=== PATIENT | male | born 1975 | race Caucasian/White ===

== ENCOUNTER 2017-08-14 00:56 | Emergency (ER) | payer OTHER ==
[2017-08-14 01:57] LABS: Band 16 % (5-11); Hemoglobin 14.2 g/dL (14.0-18.0); Lymphocytes 15 % (21-51); MDiff Complete? YES; Mean Corpuscular HGB CONC 33.8 g/dL (32.0-36.0); Mean Corpuscular Hemoglobin 30.1 pg (27.0-31.0); Mean Platelet Volume 8.2 fL (7.4-10.4); Monocytes 7 % (0-10); Neutrophil 62 % (42-75); PLT Morphology Comment Appears Adequate; Platelet Count 130 thou/uL (130-400); RBC Distribution Width 11.2 % (11.5-14.5); Red Blood Cell (RBC) Count 4.72 mill/uL (4.70-6.10); White Blood Cell (WBC) Count 18.6 thou/uL (4.8-10.8)
[2017-08-14 02:01] LABS: ALT (SGPT) 9 U/L (8-55); AST (SGOT) 14 U/L (5-34); Albumin 4.3 g/dL (3.5-5.0); Alkaline Phosphatase 59 U/L (40-150); Anion Gap 13 mmol/L (10-20); BUN (Urea Nitrogen) 16 mg/dL (8.9-20.6); Bilirubin, Total 1.5 mg/dL (0.2-1.2); Calc. Creatinine Clearance 0 mL/min (70-130); Carbon Dioxide 25 mmol/L (22-29); Chloride 102 mmol/L (98-107); Estimated GFR-MDRD 65; Globulin 3.2 g/dL (2.4-3.5); Glucose 118 mg/dL (70-105); Potassium 4.1 mmol/L (3.5-5.1); Protein, Total 7.5 g/dL (6.0-8.3); Sodium 136 mmol/L (136-145)
[2017-08-14 02:31] LABS: Bilirubin Negative (Negative); Blood, Urine Moderate (Negative); Clarity CLEAR (Clear); Glucose, Urine (Dipstick) Negative (Negative); Leukocyte Negative (Negative); Nitrite Negative (Negative); Protein, Urine (Dipstick) 30 mg/dL (Neg-Trace); Specific Gravity, Urine 1.029 (1.002-1.036); Urobilinogen 0.2 mg/dL (0.2-1.0); pH, Urine 5.5 (5.0-9.0)
[2017-08-14 02:34] LABS: Bacteria/HPF None Seen HPF (None Seen); Hyaline Casts/LPF 0-3 HYALINE CAST LPF (0-3 Hyaline); Pathc Cast-AUWi Flag 0.29 (0-2.49); Squamous Epithelial 0-3 HPF (0-3)
[2017-08-14 02:51] LABS: Oval Fat Bodies/HPF None Seen HPF (None Seen); Renal Epithelial None Seen HPF (0-3); Sperm/HPF None Seen HPF (None Seen); Transitional Epithelial NONE SEEN HPF (0-3); Trichomonas/HPF None Seen HPF (None Seen); Yeast-All Forms None Seen HPF (None Seen)
[2017-08-14] MEDS ORDERED: Ondansetron ODT 4 MG TAB ONE (04:02)
[2017-08-14] MEDS ORDERED: Ketorolac Tromethamine 30 MG/ML VIAL ONE (04:02)
[2017-08-14] MEDS ORDERED: Morphine 10 MG/ML VIAL ONE (04:02)
[2017-08-14] MEDS ORDERED: cefTRIAXone\\ROCEPHIN 2 GM VIAL ONE (06:32)
[2017-08-14] MEDS ORDERED: Sodium Chloride 0.9% 100 ML ONE (06:32)
--- NOTE | 2017-08-14 09:16 | CT ---
PRELIMINARY REPORT/[facility]/EMERGENTY AFTER-HOURS PROCEDURE CT Abdomen and Pelvis Without Intravenous Contrast CLINICAL HISTORY: 42 years old, male; Pain; Abdominal pain; Flank; Right; Patient HX: Er 5; 42 yo m presents to ed with abdominal pain. Pt reports pain on the right side of his abdomen, with associated right flank pain a nd right testicular pain. Pt reports he had a fever of 104 yesterday. Pt reports he hasn't had much o f an appetite, but has eaten some. Pt reports normal bowel movements. Pt reports some blood in his ur ine. TECHNIQUE: Axial computed tomography images of the abdomen and pelvis without intravenous contrast. Coronal ref ormatted images were created and reviewed. COMPARISON: No relevant prior studies available. FINDINGS: Lung bases: No acute findings. ABDOMEN: Liver: Normal. Gallbladder and bile ducts: Unremarkable. Pancreas: Normal. Spleen: Normal. Adrenals: Normal. Kidneys and ureters: Mild bilateral renal papillary region hyperdensity can be seen with dehydration or mild nephrocalcinosis. 2 mm nonobstructive left renal stone. Questionable punctate nonobstructive right renal stone. Otherwise, no defined renal stone. No ureteral stone identified. No hydroureteronephrosis. Stomach and bowel: Unremarkable. No obstruction. PELVIS: Appendix: Normal appendix. Bladder: Unremarkable. Reproductive: Unremarkable. ABDOMEN and PELVIS: Intraperitoneal space: No free air. No significant fluid collection. Bones/joints: Unremarkable. No acute fracture. Soft tissues: Unremarkable. Vasculature: Unremarkable. Lymph nodes: Unremarkable. No enlarged lymph nodes. IMPRESSION: No acute findings. No obstructive urolithiasis or hydroureteronephrosis. Thank you for allowing us to participate in the care of your patient. Dictated and Authenticated by: Phan Moreno MD 08/14/2017 5:55 AM Central Time ([place] & [place]) FINAL REPORT CT ABDOMEN AND PELVIS WITHOUT CONTRAST: Date: 08/14/17 FINDINGS/IMPRESSION: I agree with the preliminary report given by Prabha. POS: [facility]
--- NOTE | 2017-08-14 09:19 | ULT ---
PRELIMINARY REPORT/[facility]/EMERGENTY AFTER-HOURS PROCEDURE US Scrotum CLINICAL HISTORY: 42 years old, male; Pain; Flank pain and scrotum pain TECHNIQUE: Real-time ultrasound of the scrotum with color Doppler and image documentation. COMPARISON: No relevant prior studies available. FINDINGS: Right testicle: Appears minimally enlarged and hypoechoic compared to the left. Mildly increased Dopp ler flow compared to the left. Left testicle: Normal. Epididymides: Enlarged heterogeneous right epididymis with increased Doppler flow. Scrotum: Possible small left varicocele. Minimal left hydrocele. Small right hydrocele with septation s. IMPRESSION: Findings suggestive of right epididymitis with mild orchitis and small septated hydrocele. Thank you for allowing us to participate in the care of your patient. Dictated and Authenticated by: Phan Moreno MD 08/14/2017 5:59 AM Central Time ([place] & [place]) FINAL REPORT BILATERAL TESTICULAR ULTRASOUND WITH DOPPLER: I agree with the preliminary report given by Dr. Phan Moreno_of [facility]. POS: [facility]
== END 2017-08-14 07:15 | disposition home or self-care (01) ==
LOC: ERS 00:56
DX: N45.3 Epididymo-orchitis (principal); Z79.899 Other long term (current) drug therapy
CPT/HCPCS: 74176; 76870; 80053; 81003; 81015; 83605; 83690; 85025; 87040; 87086; 93976; 96361; 96365; 96375; J0696; J1885; J2270; J7050; Q0162